=== PATIENT | female | born 1960 | race African-American/Black ===

== ENCOUNTER → 2024-03-13 16:51 | Outpatient (BNVA) | payer OTHER, SELFPAY | PROVIDERS: Visit Provider Nurse Practitioner Family | DX: Z00.00 Encounter for general adult medical examination without abnormal findings (principal) | CPT/HCPCS: 86787 ==

== ENCOUNTER 2024-04-12 12:46 | Emergency (ER) | payer MEDICARE, BC, SELFPAY ==
[2024-04-12 13:08] VITALS: BP 95/51; PULSE 82; RESP 15; TEMP 36.8; O2SAT 100; BMI 21.4
--- NOTE | 2024-04-12 13:12 | ECG_ITS ---
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
[2024-04-12 13:32] VITALS: BP 114/56; PULSE 85; RESP 16; O2SAT 100
--- NOTE | 2024-04-12 13:32 | XRR_ITS ---
PROCEDURE INFORMATION: Exam: XR Chest Exam date and time: 04/12/2024 1:41 PM Age: 64 years old Clinical indication: Other: Weakness TECHNIQUE: Imaging protocol: Radiologic exam of the chest. Views: 1 view. COMPARISON: No relevant prior studies available. FINDINGS: Lungs: Unremarkable. No consolidation. Pleural spaces: Unremarkable. No pleural effusion. No pneumothorax. Heart/Mediastinum: Unremarkable. No cardiomegaly. Bones/joints: Unremarkable. XR/XR chest 1V portable [id number] IMPRESSION: No acute findings.
--- NOTE | 2024-04-12 13:34 | ED_ITS ---
HPI - Dizziness 2 General: Chief Complaint: Dizziness Stated Complaint: dizziness Time Seen by Provider: 04/12/24 13:29 History of Present Illness: HPI Narrative: 64-year-old female who [facility] with light[facility]ness. She says she thinks he might be dehydrated or maybe has a low blood sugar. This started this morning. No chest pain. No fever. No abdominal pain. No nausea or vomiting. Related Data Home Medications Medication Instructions Recorded Confirmed No Known Home Medications 03/13/24 03/13/24 Allergies Allergy/AdvReac Type Severity Reaction Status Date / Time No Known Allergies Allergy Verified 03/13/24 16:19 Review of Systems 2 Narrative: Constitutional symptoms: Negative except as documented in HPI. Skin symptoms: Negative except as documented in HPI. Eye symptoms: Negative except as documented in HPI. ENMT symptoms: Negative except as documented in HPI. Respiratory symptoms: Negative except as documented in HPI. Cardiovascular symptoms: Negative except as documented in HPI. Gastrointestinal symptoms: Negative except as documented in HPI. Genitourinary symptoms: Negative except as documented in HPI. Musculoskeletal symptoms: Negative except as documented in HPI. Neurologic symptoms: Negative except as documented in HPI. Psychiatric symptoms: Negative except as documented in HPI. Endocrine symptoms: Negative except as documented in HPI. PFSH ED 2 PFSH: Social History Smoking and tobacco/nicotine status: never used tobacco/nicotine Physical Exam 2 Narrative: EXAM NARRATIVE: General: Alert, no acute distress. Skin: Warm, dry. Head: Normocephalic, atraumatic. Neck: Supple, trachea midline. Eye: Extraocular movements are intact. Ears, nose, mouth and throat: mucosa moist. Cardiovascular: Regular, Normal peripheral perfusion. Respiratory: Lungs are clear to auscultation, respirations are non-labored, breath sounds are equal, Symmetrical chest wall expansion. Gastrointestinal: Soft, Nontender, Non distended Musculoskeletal: Normal ROM, no deformity. Neurological: Alert and oriented, No focal neurological deficit observed. Psychiatric: Cooperative, appropriate mood & affect. Course 2 Vital Signs: Vital signs: Vital Signs Temperature 98.2 F 04/12/24 13:08 Pulse Rate 93 04/12/24 14:28 Respiratory Rate 16 04/12/24 14:23 Blood Pressure 121/80 04/12/24 14:28 Pulse Oximetry 97 04/12/24 14:28 Oxygen Delivery Me thod Room Air 04/12/24 14:23 MDM - Dizziness Medical Decision Making Medical decision making: Differential diagnosis including but not limited to and based on the above HPI, review of systems and physical exam: for patient with complaint of dizziness: stroke, hypotension, hypertension, infection, vertigo, orthostasis Orders placed to evaluate differential diagnosis based on the above differential, HPI and physical exam EKG: Time 1312. Rate 82. Normal sinus rhythm, No ST-T changes, no ectopy, normal NE & QRS intervals, This was reviewed and interpreted by myself the ER physician at 1315. Chest x-ray: No acute process. No infiltrate. No pneumothorax. This was reviewed and interpreted by myself the ER physician. Lab Review: Laboratory results were reviewed and interpreted by myself the emergency room physician. No leukocytosis. No anemia. No renal failure. Urine was quite concentrated. Patient seems dehydrated. She had fasted last night. She is able to take fluids by mouth. I encouraged p.o. intake of fluids. Not doing IV fluids as she is able to take p.o. and there is a nationwide shortage I reviewed the patient's medical record. Reexamination: Patient remained stable. No increased work of breathing. No altered mental status. No focal motor deficits. Assessment and plan: Dehydration - Discharged home - Discussed plan with patient. Answered any questions. - Evaluation and treatment of this problem were appropriate in the emergency setting. Lab Data 04/12/24 13:41 04/12/24 13:41 Laboratory Results WBC 4.50 10^3/uL (3.29-11.43) 04/12/24 13:41 RBC 4.40 10^6/uL (3.85-5.65) 04/12/24 13:41 Hgb 12.30 g/dL (11.27-16.99) 04/12/24 13:41 Hct 38.2 % (36-47) 04/12/24 13:41 MCV 86.8 fl (85-98) 04/12/24 13:41 MCH 28.0 pg (27-33) 04/12/24 13:41 MCHC 32.2 g/dL (30-55) 04/12/24 13:41 RDW 13.2 % (12.1-15.1) 04/12/24 13:41 Plt Count 211 10^3/cmm (157-399) 04/12/24 13:41 MPV 10.4 fL (7.4-10.4) 04/12/24 13:41 Neut % (Auto) 82.1 % 04/12/24 13:41 Lymph % (Auto) 12.9 % 04/12/24 13:41 Eaton % (Auto) 4.4 % 04/12/24 13:41 Eos % (Auto) 0.0 % 04/12/24 13:41 Baso % (Auto) 0.4 % 04/12/24 13:41 Neut # (Auto) 3.69 10^3/uL (1.8-7.7) 04/12/24 13:41 Lymph # (Auto) 0.6 10^3/uL (0.8-4.8) L 04/12/24 13:41 Eaton # (Auto) 0.2 10^3/uL (0.2-0.9) 04/12/24 13:41 Eos # (Auto) 0.0 10^3/uL (0.0-0.8) 04/12/24 13:41 Baso # (Auto) 0.0 10^3/uL (0.0-0.1) 04/12/24 13:41 Nucleated RBC % (auto) 0 % 04/12/24 13:41 Nucleated RBCs # 0.0 /100WBC 04/12/24 13:41 Sodium 138 mmol/L (136-145) 04/12/24 13:41 Potassium 3.7 mmol/L (3.5-5.1) 04/12/24 13:41 Chloride 100 mmol/L (98-107) 04/12/24 13:41 Carbon Dioxide 25 mmol/L (22-29) 04/12/24 13:41 Anion Gap 16.7 (5-19) 04/12/24 13:41 BUN 22 mg/dL (8-23) 04/12/24 13:41 Creatinine 0.9 mg/dL (0.5-0.9) 04/12/24 13:41 GFR Calculation 76.0 mL/min (90-130) L 04/12/24 13:41 Glucose 148 mg/dL (65-115) H 04/12/24 13:41 Calculated Osmolality 292 mOsm/kg (285-295) 04/12/24 13:41 Calcium 9.4 mg/dL (8.5-10.5) 04/12/24 13:41 Total Bilirubin 1.5 mg/dL (0.15-1.2) H 04/12/24 13:41 AST 25 U/L (0-32) 04/12/24 13:41 ALT 13 U/L (0-33) 04/12/24 13:41 Alkaline Phosphatase 114 U/L (35-105) H 04/12/24 13:41 Troponin T Baseline 10 ng/L (0-10) 04/12/24 13:41 Total Protein 7.3 g/dL (6.6-8.7) 04/12/24 13:41 Albumin 4.6 g/dL (3.5-5.2) 04/12/24 13:41 Globulin 2.7 g/dL (1.3-4.6) 04/12/24 13:41 Urine Color Dark yellow (Yellow) A 04/12/24 13:42 Urine Appearance Clear (CLEAR) 04/12/24 13:42 Urine pH 5.0 (5-7) 04/12/24 13:42 Ur Specific Ma[place] 1.032 (1.005-1.030) H 04/12/24 13:42 Urine Protein Trace (Negative) A 04/12/24 13:42 Urine Glucose (UA) Negative (Normal) 04/12/24 13:42 Urine Ketones 1+ (Negative) H 04/12/24 13:42 Urine Blood Negative (Negative) 04/12/24 13:42 Urine Nitrate Negative (Negative) 04/12/24 13:42 Urine Bilirubin 1+ (Negative) H 04/12/24 13:42 Urine Urobilinogen 1.0 mg/dL (Negative) 04/12/24 13:42 Ur Leukocyte Esterase Trace (Negative) A 04/12/24 13:42 Urine RBC 0-2 /hpf (0-2) 04/12/24 13:42 Urine WBC 0-5 /hpf (0-5) 04/12/24 13:42 Ur Squamous Epith Cells 0-5 /hpf (0-5) 04/12/24 13:42 Amorphous Sediment Not Reportable 04/12/24 13:42 Urine Bacteria 1+ /hpf (NONE) H 04/12/24 13:42 Hyaline Casts 11.97 /lpf 04/12/24 13:42 Urine Mucus 1+ /hpf 04/12/24 13:42 All radiology interpretation(s) finalized by discharge Discharge Plan Discharge Patient Disposition: Home Clinical Impression: Dehydration Condition: Stable Prescriptions: No Action No Known Home Medications Discharge Orders: Discharge ED (Routine); Ordered 04/12/24 Ordered By: Lela Espino Discharge Diet: Usual diet Patient Instructions: Dehydration (ED) Activity Restrictions/Additional Instructions: Thank you for choosing [facility] [place] for your healthcare needs today. Please realize this is an emergency room and that we are providing you with a medical screening exam and this may not be complete and all inclusive of all the testing and or work up that you may need to determine your ailment or severity of your illness. You have been screened and evaluated and felt safe for discharge. Health conditions do change or evolve sometimes and as such it is important that you follow up with your Primary Doctor to be re checked, 3-5 days is a general good time frame for follow up. You are always welcome to return to the ED for re assessment if your symptoms are worsening or you have new concerns Coding Level of Care Code ED Machine [employer] for [employer]
[2024-04-12 13:49] LABS: Basophils % 0.4 %; Hematocrit 38.2 % (36-47); Lymphocytes # 0.6 10^3/uL (0.8-4.8); Lymphocytes % 12.9 %; Mean Corpuscular HGB Conc 32.2 g/dL (30-55); Mean Corpuscular Volume 86.8 fl (85-98); Mean Platelet Volume 10.4 fL (7.4-10.4); Monocytes # 0.2 10^3/uL (0.2-0.9); Monocytes % 4.4 %; Neutrophils # 3.69 10^3/uL (1.8-7.7); Neutrophils % 82.1 %; Nucleated Red Blood Cells % 0 %; Platelet Count 211 10^3/cmm (157-399); Red Cell Distribution Width 13.2 % (12.1-15.1)
[2024-04-12 13:51] LABS: Bilirubin Urine 1+ (Negative); Blood Urine Negative (Negative); Glucose Urine UA Negative (Normal); Ketones Urine 1+ (Negative); Leukocyte Esterase Urine Trace (Negative); Nitrate Urine Negative (Negative); Protein Urine Trace (Negative); Urine Appearance Clear (CLEAR); Urine Color Dark Yellow (Yellow)
[2024-04-12 13:56] LABS: Hyaline Casts Urine 11.97 /lpf; RBC Urine 0-2 /hpf (0-2); Squamous Epithelial Cell Urine 0-5 /hpf (0-5); WBC Urine 0-5 /hpf (0-5)
[2024-04-12 14:05] LABS: Bacteria Urine 1+ /hpf; Mucus Urine 1+ /hpf; Specific Gravity, Urine 1.032 (1.005-1.030)
[2024-04-12 14:11] LABS: Troponin(5th) Baseline 10 ng/L (0-10)
[2024-04-12 14:12] LABS: Alanine Aminotransferase 13 U/L (0-33); Albumin Level 4.6 g/dL (3.5-5.2); Alkaline Phosphatase 114 U/L (35-105); Anion Gap 16.7 (5-19); Aspartate Amino Transferase 25 U/L (0-32); Blood Urea Nitrogen 22 mg/dL (8-23); Calcium 9.4 mg/dL (8.5-10.5); Carbon Dioxide 25 mmol/L (22-29); Chloride 100 mmol/L (98-107); Creatinine Clr Calc Pharmacy 60.8151; Globulin 2.7 g/dL (1.3-4.6); Glucose 148 mg/dL (65-115); Osmolality Calculated 292 mOsm/kg (285-295); Potassium 3.7 mmol/L (3.5-5.1); Sodium 138 mmol/L (136-145); Total Bilirubin 1.5 mg/dL (0.15-1.2); Total Protein 7.3 g/dL (6.6-8.7)
[2024-04-12 14:22] VITALS: BP 118/59; BP 119/61; BP 121/80; PULSE 90; PULSE 94; PULSE 95
[2024-04-12 14:23] VITALS: BP 121/80; PULSE 90; RESP 16; O2SAT 94
[2024-04-12 14:28] VITALS: BP 121/80; PULSE 93; O2SAT 97
== END 2024-04-12 14:29 | disposition home or self-care (01) ==
PROVIDERS: Emergency Provider Emergency Medicine
DX: E86.0 Dehydration (principal)
CPT/HCPCS: 36415; 71045; 80053; 81001; 84484; 85025; 93005; 99285